=== PATIENT | male | born 1975 | race Two or more races ===

== ENCOUNTER 2017-06-21 23:47 | Emergency (ER) | payer SELFPAY ==
[~2017-06-21] VITALS: Ht 167.6 cm; Wt 81.6 kg
--- NOTE | 2017-06-22 00:05 | NUR ---
Pt biba for anxiety with muscle cramping and spasms, possible hyperventilation. EKG obtained. Pt placed on monitor- NSR. Pt seen by Dr. Perez, awaiting further orders.
--- NOTE | 2017-06-22 00:30 | NUR ---
Pt medicated for anxiety, will monitor for effects of medication.
[2017-06-22 00:39] LABS: CREATININE 0.9 mg/dL (0.6-1.3); POTASSIUM 3.2 mmol/L (3.5-5.1)
[2017-06-22 00:51] LABS: BILIRUBIN,DIRECT 0.1 mg/dL (0.0-0.2); BILIRUBIN,TOTAL 0.4 mg/dL (0.2-1.0); TOTAL PROTEIN, SERUM 7.7 g/dL (6.4-8.2)
[2017-06-22 00:55] LABS: BASOPHILS % (AUTO) 0.4 % (0.0-2.0); EOSINOPHILS # (AUTO) 1.3 K/uL (0.0-0.7); EOSINOPHILS % (AUTO) 12.5 % (0.0-7.0); HEMATOCRIT 44.4 % (40-50); HEMOGLOBIN 15.5 G/DL (14.0-18.0); LYMPHOCYTES % (AUTO) 19.4 % (20.5-51.5); MEAN CORPUSCULAR HEMOGLOBIN 32.1 UUG (27.0-31.0); MEAN CORPUSCULAR HGB CONC 35 g/dL (32.0-37.0); MEAN CORPUSCULAR VOLUME 91.8 FL (82.0-92.0); MONOCYTES # (AUTO) 0.5 K/UL (0.1-1.30); MONOCYTES % (AUTO) 4.7 % (0.0-11.0); NEUTROPHILS # (AUTO) 6.7 K/UL (1.8-8.9); PLATELET COUNT (AUTO) 252 K/UL (150-450); RED BLOOD CELL COUNT(AUTO) 4.84 MIL/UL (4.7-6.1); WHITE BLOOD COUNT (AUTO) 10.5 K/UL (4.0-11.2)
--- NOTE | 2017-06-22 01:00 | NUR ---
Pt sts he is starting to feel better. Pt resting in position of comfort for self. Resp even and unlabored. Family at bedside.
--- NOTE | 2017-06-22 01:30 | NUR ---
Pt stable for discharge per Dr. Perez. IV dc'd, catheter intact. Drsg applied. No problems noted to site. Pt and son given ACI. Both verbalized understanding of dc instructions. Pt wheeled out of ER via w/c with ride home.
[2017-06-22 01:54] VITALS: BP 115/77
== END 2017-06-22 01:30 | disposition home or self-care (01) ==
LOC: ER 23:54
DX: R06.4 Hyperventilation (principal); F41.9 Anxiety disorder, unspecified; R07.89 Other chest pain; I45.6 Pre-excitation syndrome
CPT/HCPCS: 36415; 70030-TC; 71010; 85025; 93005; A4663; J2060